=== PATIENT | female | born 1965 | race Caucasian/White ===

== ENCOUNTER 2020-01-10 16:44 | Emergency (ER) | payer OTHER | END 2020-01-10 20:57 | disposition other institution (70) | LOC: ED 16:44 | DX: Z02.89 Encounter for other administrative examinations (principal) ==

== ENCOUNTER 2020-01-10 16:44 | Emergency (ER) | payer OTHER ==
[~2020-01-10] VITALS: Ht 160 cm; Wt 96.2 kg
[2020-01-10 16:50] VITALS: Ht 160 cm; Wt 96.2 kg
[2020-01-10 17:56] LABS: AMPHETAMINE QUAL UR POSITIVE (See below)
[2020-01-10 20:57] VITALS: BP 182/114
== END 2020-01-10 20:57 | disposition other institution (70) ==
LOC: ED 16:44
PROVIDERS: Emergency Medicine
DX: I10 Essential (primary) hypertension (principal); E66.9 Obesity, unspecified; F15.10 Other stimulant abuse, uncomplicated; Z68.37 Body mass index [BMI] 37.0-37.9, adult